=== PATIENT | female | born 1960 | race Caucasian/White ===

== ENCOUNTER 2017-09-22 10:03 | Inpatient (IN) | payer MEDICAID, OTHER ==
[~2017-09-22] VITALS: Ht 162.6 cm; Wt 99.8 kg
[~2017-09-22 10:03] MED LIST: ACET-3457 PO; ASPI81EC20 PO; ENAL10TA8 PO; FURO-570 PO; POTA20TE15 PO; [UNRECOGNIZED DRUG - CODE] PO
[2017-09-22 10:16] VITALS: BP 138/77
--- NOTE | 2017-09-22 10:41 | NUR ---
PT TAKEN BY WHEELCHAIR TO BED 2
--- NOTE | 2017-09-22 10:50 | NUR ---
PT. PRESENTED TO THE ED WITH C/O OF PAIN IN L SIDE OF CHEST THAT DID NOT RADIATE AND WAS CLASSIFIED SHARP PAIN 03/16 AND HEADACHE THAT DID NOT RADIATE 02/14. PT. IS AAOX4. PT. DOES NOT C/O OF N/V/D AT THIS TIME. PT. HAS 3+ PITTING EDEMA IN BILATERAL LEGS AND PT STATES " MY LEGS HURT." WHILE SPEAKING TO THE PATIENT, PT STARTED SMACKING LIPS AND BLINKING AND DID NOT RESPOND TO VERBAL QUESTIONS ANYMORE. DR. GUILLEN NOTIFIED AND CAME INTO ROOM. WILL CONTINUE TO MONITOR.
--- NOTE | 2017-09-22 10:55 | NUR ---
PT. WAS ANSWERING QUESTIONS THEN BECAME UNABLE TO SPEAK WITH L SIDE RIGIDITY AND L SIDE FLACCIDNESS, NOTIFIED CHARGE NURSE AND DR. GUILLEN. ALFREDO ELLIS AT BEDSIDE AND ALFREDO OLIVAS AT BEDSIDE STARTING IV.
--- NOTE | 2017-09-22 11:13 | NUR ---
TOLD BY DR VALVERDE THAT PT WILL NOT BE TRASFERED TO [facility]
--- NOTE | 2017-09-22 11:17 | NUR ---
PT TAKEN IN BED TO CT
[2017-09-22 12:12] LABS: BASOPHILS % (AUTO) 0.2 % (0.0-2.0); EOSINOPHILS # (AUTO) 0.6 K/uL (0-0.4); EOSINOPHILS % (AUTO) 8.5 % (0.0-4.0); HEMATOCRIT 37.3 % (36-48); HEMOGLOBIN 12.4 g/dL (12.0-16.0); LYMPHOCYTES # (AUTO) 1.6 K/uL (2.5-16.5); LYMPHOCYTES % (AUTO) 22.7 % (20.5-51.1); MEAN CORPUSCULAR HEMOGLOBIN 31 pg (27-31); MEAN CORPUSCULAR HGB CONC 33 g/dL (33-37); MEAN CORPUSCULAR VOLUME 93.6 fL (80-94); MONOCYTES # (AUTO) 0.4 K/uL (0.8-1.0); MONOCYTES % (AUTO) 6.4 % (1.7-9.3); NEUTROPHILS # (AUTO) 4.4 K/uL (1.8-7.7); NEUTROPHILS % (AUTO) 62.2 % (42.2-75.2); PLATELET COUNT (AUTO) 223 K/uL (140-450); RED BLOOD CELL COUNT(AUTO) 3.98 MIL/uL (4.20-5.40); RED CELL DISTRIBUTION WIDTH 14.1 % (11.6-13.7)
[2017-09-22 12:31] LABS: ALBUMIN 2.9 g/dL (3.4-5.0); ANION GAP 11.9 (8-16); CARBON DIOXIDE 29.1 mmol/L (21-32); CREATININE 0.9 mg/dL (0.6-1.3); TOTAL BILIRUBIN 0.2 mg/dL (0.0-1.0)
[2017-09-22 12:33] LABS: PROTHROMBIN TIME 11.5 secs (10.8-13.4)
[2017-09-22] MEDS ORDERED: ACETAMINOPHEN 325 MG TAB PO PRN (13:05)
[2017-09-22] MEDS ORDERED: DOCUSATE SODIUM 100 MG GELCAP PO PRN (13:05)
[2017-09-22] MEDS ORDERED: ONDANSETRON 4 MG/2 ML VIAL IM/IVP PRN (13:05)
[2017-09-22] MEDS ORDERED: NITROGLYCERIN 0.4 MG TAB SL PRN (13:50)
[2017-09-22] MEDS ORDERED: MECLIZINE 25 MG TAB PO PRN (14:05)
--- NOTE | 2017-09-22 14:25 | NUR ---
Patient will be admitted to care of DR. PATEL. Admited to TELE [id number] . Will go to [id number] . Belongings list completed. Report to ALFREDO LAWTON .
[2017-09-22 14:28] VITALS: BP 149/52
--- NOTE | 2017-09-22 14:28 | NUR ---
PATIENT ARRIVED ON THE UNIT VIA GURNEY FROM ER. RECEIVED REPORT FROM ER NURSE. PATIENT IS AWAKE, ALERT AND ORIENTEDX4. NO SIGNS OF DISTRESS ON ROOM AIR. IV ON R WRIST 24 G SL. IV ON L WRIST 22G SL. IV SITES ARE CLEAN, DRY AND INTACT. SKIN IS INTACT. BLE EDEMA PITTING +1, BUE EDEMA NONPITTING. TELE MONITOR IN PLACE. FALL PRECAUTIONS PLACED. BED IN LOW POSITION. CALL LIGHT WITHIN REACH. WILL CONTINUE TO MONITOR THE PATIENT.
[2017-09-22] MEDS: HYDROcodone/APAP 7.5/325 MG 1 TAB PO PRN ×2 (15:01→20:07)
[2017-09-22] MEDS: NACL 0.9% 1,000 ML IV SCH ×2 (15:01→20:14)
--- NOTE | 2017-09-22 15:10 | NUR ---
ADMINISTERED PAIN MEDS ORDERED. PATIENT TOLERATED WELL. WILL REASSESS PAIN IN AN HOUR. BED IN LOW POSITION. CALL LIGHT WITHIN REACH.
[2017-09-22 15:18] LABS: FREE T4 (FREE THYROXINE) 1.1 ng/dL (0.76-1.46); MAGNESIUM 1.7 mg/dL (1.8-2.4); PHOSPHORUS 4.2 mg/dL (2.5-4.9); THYROID STIMULATING HORMONE 1.92 uIU/mL (0.34-3.74)
[2017-09-22] MEDS ORDERED: DEXTROSE 50% 50 ML SYR IVP PRN (15:20)
[2017-09-22] MEDS ORDERED: INSULIN LISPRO SLIDING SCALE 100 UNITS/ML VIAL SUBQ PRN (15:20)
[2017-09-22] MEDS ORDERED: ALBUTEROL SULFATE/IPRATROPIU 3 ML SOL IH PRN (15:25)
[2017-09-22 16:00] VITALS: BP 138/70
[2017-09-22] MEDS: BLOOD GLUCOSE MONITORING 1 DEV DEV FS SCH ×2 (16:22→21:00)
[2017-09-22] MEDS: KETOROLAC 15 MG/ML VIAL IVP PRN (18:32)
--- NOTE | 2017-09-22 18:32 | NUR ---
ADMINISTERED PAIN MEDS ORDERED. PATIENT IV IS CLEAN, DRY AND INTACT. WILL REASSESS PAIN IN 30MINS. BED IN LOW POSITION CALL LIGHT WITHIN REACH. WILL CONTINUE TO MONITOR THE PATIENT.
--- NOTE | 2017-09-22 19:10 | NUR ---
GAVE BEDSIDE REPORT. PATIENT IS IN STABLE CONDITION.
--- NOTE | 2017-09-22 19:30 | NUR ---
RECEIVED PT REPORT AT BEDSIDE FROM DAY SHIFT NURSE [place]. PT AAO X4. PT IS ON RA. NO S/S OF DISTRESS. NO SOB. NO PAIN AT THIS TIME. BED LOWERED CALL LIGHT WITHIN REACH WILL CONTINUE TO MONITOR.
[2017-09-22 20:00] VITALS: BP 131/80
--- NOTE | 2017-09-22 20:20 | NUR ---
PATIENT AWAKE AND ALERT. NO COMPLAINTS OF SOB. O2 SAT ON ROOM AIR 98%. BREATH SOUNDS CLEAR. NO TX INDICATED AT THIS TIME. WILL CONTINUE TO MONITOR.
--- NOTE | 2017-09-22 20:30 | NUR ---
PATIENT AWAKE AND ALERT, SITTING UP IN BED. NO COMPLAINTS OF SOB. O2 SAT 98% ON ROOM AIR. BREATH SOUNDS CLEAR. NO HHN GIVEN; TX NOT INDICATED AT THIS TIME. WILL CONTINUE TO MONITOR.
[2017-09-22] MEDS: SIMVASTATIN 20 MG TAB PO SCH (20:46)
[2017-09-22] MEDS: METOPROLOL 25 MG TAB PO SCH (20:46)
[2017-09-22] MEDS ORDERED: LORazepam 1 MG TAB PO SCH (23:00)
[2017-09-23] VITALS (7 sets, daily range): BP systolic 134–178; BP diastolic 52–96
--- NOTE | 2017-09-23 | NUR ---
ASSESSED PT. PT IS SLEEPING WILL CONTINUE TO MONITOR.
[2017-09-23] MEDS: KETOROLAC 15 MG/ML VIAL IVP PRN ×2 (00:41→09:17)
[2017-09-23] MEDS: NACL 0.9% 1,000 ML IV SCH (03:23)
--- NOTE | 2017-09-23 05:00 | NUR ---
IV IS NOT INFUSING. BLOOD IS LEAKING ON SITE WILL DISCONTINUE IV.
[2017-09-23 07:01] LABS: BASOPHILS # (AUTO) 0.1 K/uL (0.00-0.22); BASOPHILS % (AUTO) 2.6 % (0.0-2.0); EOSINOPHILS # (AUTO) 0.6 K/uL (0-0.4); EOSINOPHILS % (AUTO) 11.5 % (0.0-4.0); HEMATOCRIT 34.9 % (36-48); HEMOGLOBIN 11.5 g/dL (12.0-16.0); LYMPHOCYTES % (AUTO) 36.5 % (20.5-51.1); MEAN CORPUSCULAR HEMOGLOBIN 31 pg (27-31); MEAN CORPUSCULAR HGB CONC 33 g/dL (33-37); MEAN CORPUSCULAR VOLUME 93.8 fL (80-94); MONOCYTES # (AUTO) 0.4 K/uL (0.8-1.0); MONOCYTES % (AUTO) 8.1 % (1.7-9.3); NEUTROPHILS # (AUTO) 2.2 K/uL (1.8-7.7); NEUTROPHILS % (AUTO) 41.3 % (42.2-75.2); PLATELET COUNT (AUTO) 209 K/uL (140-450); RED BLOOD CELL COUNT(AUTO) 3.72 MIL/uL (4.20-5.40); WHITE BLOOD COUNT (AUTO) 5.4 K/uL (4.8-10.8)
--- NOTE | 2017-09-23 07:35 | NUR ---
RECEIVED REPORT FROM RN TELE RN. PATIENT IS AAOX3, NO SIGNS AND SYMPTOMS OF ACUTE DISTRESS NOTED AT THIS TIME. PATIENT HAS IV TO THE LEFT WRIST 22G, INFUSING NS AT 140 ML/HR. SITE SEEMS TO BE LEAKING FLUID, WILL CHANGE NADYA SITE. PATIENT HAS BILATERAL EDEMA IN LEGS WITH PITTING +1. BED IN LOWEST POSITION, SIDE RAILS UP X2, CALL LIGHT WITHIN REACH. WILL CONTINUE TO MONITOR.
--- NOTE | 2017-09-23 07:35 | NUR ---
GAVE REPORT TO DAYSHIFT NURSE FOR CONTINUITY OF CARE.
[2017-09-23 07:42] LABS: ANION GAP 10.9 (8-16); CARBON DIOXIDE 28.5 mmol/L (21-32); CREATININE 0.8 mg/dL (0.6-1.3); POTASSIUM 3.4 mmol/L (3.5-5.1)
[2017-09-23] MEDS: BLOOD GLUCOSE MONITORING 1 DEV DEV FS SCH ×4 (07:48→21:27)
[2017-09-23 07:55] LABS: MAGNESIUM 1.7 mg/dL (1.8-2.4); PHOSPHORUS 4.4 mg/dL (2.5-4.9)
[2017-09-23] MEDS: ECOTRIN 81 MG TABEC PO SCH (08:11)
[2017-09-23] MEDS: HYDROcodone/APAP 7.5/325 MG 1 TAB PO PRN (08:11)
[2017-09-23] MEDS: METOPROLOL 25 MG TAB PO SCH ×2 (08:12→21:13)
[2017-09-23] MEDS: ENALAPRIL 10 MG TAB PO SCH (08:12)
[2017-09-23] MEDS: FUROSEMIDE 40 MG TAB PO SCH ×2 (08:12→21:13)
[2017-09-23] MEDS ORDERED: ASPIRIN 81 MG TAB.CHEW PO SCH (09:00)
[2017-09-23] MEDS ORDERED: LISINOPRIL 5 MG TAB PO SCH (09:00)
--- NOTE | 2017-09-23 10:12 | NUR ---
PATIENT HAS BEEN SCREENED AND CATEGORIZED MODERATE NUTRITION RISK. PATIENT WILL BE SEEN WITHIN 3-5 DAYS OF ADMISSION. 09/25/17 - 09/27/[address]
[2017-09-23] MEDS ORDERED: FUROSEMIDE 40 MG/4 ML VIAL IVP SCH (10:15)
[2017-09-23] MEDS: POTASSIUM CHLORIDE 10 MEQ TABER PO SCH (10:25)
[2017-09-23] MEDS: DEXT 5% / NACL 0.9% 500 ML IV SCH ×4 (10:40→23:33)
[2017-09-23] MEDS ORDERED: oxyCODONE 10 MG TABER PO PRN (10:45)
[2017-09-23] MEDS: oxyCODONE/APAP 5/325 MG 1 TAB TAB PO PRN ×3 (11:07→22:57)
[2017-09-23] MEDS: KETOROLAC 30 MG/ML VIAL IVP PRN (17:08)
[2017-09-23] MEDS ORDERED: POTASSIUM CHLORIDE 10 MEQ TABER PO SCH (18:58)
--- NOTE | 2017-09-23 19:31 | NUR ---
ENDORSED PATIENT TO WELFARE INVESTIGATOR RN FOR CONTINUITY OF CARE. PATIENT IN STABLE CONDITION.
--- NOTE | 2017-09-23 21:00 | NUR ---
MEDICATED PT. PT REQUESTING SLEEP AND PAIN MEDICATION WILL LET DR JOHNSON KNOW.
[2017-09-23] MEDS: SIMVASTATIN 20 MG TAB PO SCH (21:13)
--- NOTE | 2017-09-23 22:15 | NUR ---
ASSESSED PATIENT PER RESPIRATORY PROTOCOL. PATIENT ON 3L/M NASAL CANNULA WHEN ENTERED ROOM. SPO2 98, HEART 64, AND RESPIRATORY RATE 18. PATIENT CONFIRMED THAT SHE DOES NOT FEEL SOB OR IN ANY RESPIRATORY DISTRESS. DECREASED OXYGEN TO 2L/M AND ADVISED RN AT BEDSIDE.
--- NOTE | 2017-09-23 22:30 | NUR ---
DR JOHNSON TALK TO PT. PT PAIN MED WILL BE CHANGED TO Q4HR. AND CPAP MACHINED ORDERED.
--- NOTE | 2017-09-24 01:00 | NUR ---
PT SLEEPING WILL CONTINUE TO MONITOR. NO SOB. NO S/S OF DISTRESS. WILL CONTINUE TO MONITOR.
[2017-09-24 04:00] VITALS: BP 161/86
--- NOTE | 2017-09-24 04:00 | NUR ---
ASSESSED PT VITALS. PT VITALS WNL. WILL CONTINUE TO MONITOR.
[2017-09-24] MEDS: DEXT 5% / NACL 0.9% 500 ML IV SCH ×2 (05:18→05:55)
--- NOTE | 2017-09-24 05:30 | NUR ---
LAB CALLED STATING PT REFUSED LAB DRAWS TODAY AND WISHES TO GET THEM LATER IN THE DAY.
[2017-09-24 06:22] LABS: T4 (THYROXINE) 9.1 ug/dL (4.5-12.0)
[2017-09-24] MEDS: BLOOD GLUCOSE MONITORING 1 DEV DEV FS SCH ×2 (06:36→11:59)
--- NOTE | 2017-09-24 07:35 | NUR ---
ENDORSED REPORT TO DAY SHIFT NURSE FOR CONTINUITY OF CARE.
[2017-09-24 08:00] VITALS: BP 147/98
--- NOTE | 2017-09-24 08:00 | NUR ---
INITIAL ASSESSMENT PERFORMED. RESIDENT ALERT AND ABLE TO MAKE SIMPLE NEEDS KNOWN. ALL NEEDS ANTICIPATED AND MET THEY ARISE.HAS SOME DIFFICULTIES EXPRESSING SELF AT TIMES. NO ACUTE DISTRESS NOTED. NO SEIZURES ACTIVITY. LUNG SOUNDS CLEAR PT ON ROOM AIR. LUNG SOUNDS CLEAR. BOWEL SOUNDS ACTIVE. STATED LBM THIS AM. PATIENT CONT ON REGULAR DIET. IV SITE TO RUE 22G D5NS @130ML/HR. WAS ENDORSED BY DIAMOND SIZER NURSE THAT PATIENT REFUSED MORNING LABS. MD AWARE. PT C/O /10 GENERALIZED PAIN WILL MEDICATE. VSS. NO C/O CHEST PAIN THIS AM . DISCUSSED PLAN OF CAR WITH PATIENT AT BEDSIDE. PATIENT VERBALIZED UNDERSTANDING AND AGREEMENT. ORIENTED PATIENT TO ROOM . CALL LIGHT WITHIN REACH. WILL CONT TO MONITOR.
[2017-09-24] MEDS: ENALAPRIL 10 MG TAB PO SCH (08:08)
[2017-09-24] MEDS: ECOTRIN 81 MG TABEC PO SCH (08:08)
[2017-09-24] MEDS: FUROSEMIDE 40 MG TAB PO SCH (08:08)
[2017-09-24] MEDS: oxyCODONE/APAP 5/325 MG 1 TAB TAB PO PRN (08:09)
[2017-09-24] MEDS: POTASSIUM CHLORIDE 10 MEQ TABER PO SCH (08:09)
[2017-09-24] MEDS: METOPROLOL 25 MG TAB PO SCH (08:10)
[2017-09-24] MEDS: KETOROLAC 30 MG/ML VIAL IVP PRN (09:26)
--- NOTE | 2017-09-24 09:30 | NUR ---
PATIENT C/O GENERALIZED PAIN. MEDICATED WITH TORADOL. STATED SOME RELIEF WITH PERCOCET. INFORMED MD OF MEDICATION REQUESTING MORE PAIN MEDICATION AT THIS TIME. WILL CONT TO MONITOR PT.NO ACUTE DISTRESS NOTED.
[2017-09-24] MEDS ORDERED: AMITRIPTYLINE 50 MG TAB PO SCH ×2 (11:34→21:00)
[2017-09-24] MEDS ORDERED: DEXT 5% /NACL 0.9% 1,000 ML IV SCH (11:34)
[2017-09-24] MEDS ORDERED: FUROSEMIDE 40 MG/4 ML VIAL IVP SCH (11:35)
[2017-09-24 12:00] VITALS: BP 125/73
--- NOTE | 2017-09-24 12:00 | NUR ---
ALL SCHEDULED MEDICATIONS ADMINISTERED AT THIS TIME.TOLERATED WELL. INFORMED PATIENT OF PENDING DISCHARGE ORDER PATIENT STATED SHE WOULD SEE WHO COULD PICK HER UP MARIA L OR [facility]. WAITING FOR PATIENT TO INFORM OF WHO WILL PICK HER UP.
[2017-09-24] MEDS ORDERED: LORazepam 1 MG TAB PO SCH (13:11)
[2017-09-24] MEDS ORDERED: MAGNESIUM OXIDE 400 MG TAB PO SCH (13:25)
--- NOTE | 2017-09-24 13:25 | NUR ---
1230 MET WITH PT AT BEDSIDE TO DISCUSS DISCHARGE PLAN. PER PT SHE JUST RECENTLY MOVED IN WITH A FRIEND MARIA L WHO LIVES IN [place] BUT PT COULD NOT PROVIDE HER FRIENDS LAST NAME ADDRESS OR PHONE NUMBER. INFORMED HER THAT PHYSICIAN HAS DEEMED HER MEDICALLY STABLE FOR DISCHARGE AND AT THIS TIME HER NEEDS CAN BE SAFELY DELIVERED AT HOME. PT STATED THAT SHE WAS SUPPOSED TO HAVE PHYSICAL THERAPY. INFORMED PT THAT THERAPY HAD ATTEMPTED TO SEE HER YESTERDAY AND SHE REFUSED. PT DENIED THAT SHE HAD REFUSED THERAPY AND DID AGREE THAT SHE WOULD TRY TO GET IN TOUCH WITH HER FRIEND TO PICK HER UP.
--- NOTE | 2017-09-24 13:40 | NUR ---
ADMINISTERED ATIVAN PATIENT STATING FEELING OF ANXIETY AND WANTED A CIGARETTE.
[2017-09-24] MEDS ORDERED: ACET-5636 PO (13:57)
[2017-09-24] MEDS ORDERED: ELA50 PO (13:58)
--- NOTE | 2017-09-24 14:50 | NUR ---
DISCHARGE INSTRUCTIONS DISCUSSED WITH PATIENT . PATIENT VERBALIZED UNDERSTANDING AND AGREEMENT. NO ACUTE DISTRESS NOTED. NO SEIZURE ACTIVITIES NOTED. IV DISCONTINUED. TOLERATED WELL. LUMEN INTACT. ID BAND REMOVED. RX SCRIPTS IN POSSESSION OF PATIENT. PERSONAL MEDS GIVEN FROM PHARMACY. ALL HER OWN PERSONAL BELONGINGS IN HER POSSESSION. PATIENT LEFT UNIT IN HER OWN CLOTHES VIA WC WITHOUT DIFFICULTIES TO PRIVATE EVHICLE BEING PICKED UP BY FRIEND.
[2017-09-25 06:16] LABS: FOLIC ACID 14.9 ng/mL (>3.0)
== END 2017-09-24 14:50 | disposition home or self-care (01) | DRG 243 ==
LOC: MED 10:03 → MTU 13:05
PROVIDERS: ADMIT Family Medicine Sports Medicine; ATTEND Family Medicine Sports Medicine
DX: K21.9 Gastro-esophageal reflux disease without esophagitis (principal); E43 Unspecified severe protein-calorie malnutrition; D68.59 Other primary thrombophilia; E11.51 Type 2 diabetes mellitus with diabetic peripheral angiopathy without gangrene; E11.65 Type 2 diabetes mellitus with hyperglycemia; I11.0 Hypertensive heart disease with heart failure; I50.9 Heart failure, unspecified; E11.69 Type 2 diabetes mellitus with other specified complication; I48.91 Unspecified atrial fibrillation; G90.9 Disorder of the autonomic nervous system, unspecified; M94.0 Chondrocostal junction syndrome [Tietze]; R56.9 Unspecified convulsions; G47.33 Obstructive sleep apnea (adult) (pediatric); F41.9 Anxiety disorder, unspecified; F17.210 Nicotine dependence, cigarettes, uncomplicated; J44.9 Chronic obstructive pulmonary disease, unspecified; E83.42 Hypomagnesemia; E02 Subclinical iodine-deficiency hypothyroidism; D64.9 Anemia, unspecified; E87.6 Hypokalemia; Z86.73 Personal history of transient ischemic attack (TIA), and cerebral infarction without residual deficits; Z79.899 Other long term (current) drug therapy; Z90.49 Acquired absence of other specified parts of digestive tract; Z56.0 Unemployment, unspecified
CPT/HCPCS: 36415; 70450; 71045; 74250; 80048; 80053; 82150; 82607; 82728; 82746; 82948; 83036; 83540; 83690; 83735; 83880; 84100; 84436; 84439; 84443; 84479; 84484; 85025; 85045; 85610; 85730; 87081; 93005; 93880; 93925; 93970; 99291; J1815; J1885; J1940; J7030; J7042; J7060; Q0092

== ENCOUNTER 2018-11-18 07:37 | Day surgery (SDC) | payer MEDICAID ==
[~2018-11-18] VITALS: Ht 170.2 cm; Wt 90.7 kg
[~2018-11-18 07:37] MED LIST changes: +ACET-5636 PO; +ELA50 PO
[2018-11-18] MEDS ORDERED: LIDOCAINE 2% 100 MG/5 ML UJET TP ONE (10:52)
[2018-11-18] MEDS ORDERED: MIDAZOLAM 2 MG/2 ML VIAL ONE (10:52)
[2018-11-18] MEDS ORDERED: fentaNYL 0.05 MG/ML VIAL ONE (10:52)
[2018-11-18] MEDS ORDERED: fentaNYL 0.05 MG/ML VIAL IVP ONE (11:06)
[2018-11-18] MEDS ORDERED: MIDAZOLAM 2 MG/2 ML VIAL IVP ONE (12:45)
== END 2018-11-18 12:33 | disposition home or self-care (01) ==
LOC: MDS 07:37 → MMU 07:38 → MDS 12:33
PROVIDERS: ATTEND Internal Medicine Gastroenterology
DX: D12.5 Benign neoplasm of sigmoid colon (principal); K57.30 Diverticulosis of large intestine without perforation or abscess without bleeding; K21.9 Gastro-esophageal reflux disease without esophagitis; G47.33 Obstructive sleep apnea (adult) (pediatric); J44.9 Chronic obstructive pulmonary disease, unspecified; I11.0 Hypertensive heart disease with heart failure; I50.9 Heart failure, unspecified; E11.9 Type 2 diabetes mellitus without complications; F32.9 Major depressive disorder, single episode, unspecified; F41.9 Anxiety disorder, unspecified; M19.90 Unspecified osteoarthritis, unspecified site; F15.90 Other stimulant use, unspecified, uncomplicated; G40.909 Epilepsy, unspecified, not intractable, without status epilepticus; E66.9 Obesity, unspecified; Z68.31 Body mass index [BMI] 31.0-31.9, adult; Z90.49 Acquired absence of other specified parts of digestive tract; Z98.890 Other specified postprocedural states; Z86.73 Personal history of transient ischemic attack (TIA), and cerebral infarction without residual deficits; Z79.899 Other long term (current) drug therapy; Z79.84 Long term (current) use of oral hypoglycemic drugs; Z87.891 Personal history of nicotine dependence; Z79.01 Long term (current) use of anticoagulants
CPT/HCPCS: 45385; J2250; J3010